=== PATIENT | male | born 1985 | race Caucasian/White ===

== ENCOUNTER 2023-05-01 08:28 | Outpatient (CLI) | payer OTHER, SELFPAY | END 2023-05-01 08:29 | disposition home or self-care (01) | LOC: RAD 08:32 | PROVIDERS: Visit Provider Nurse Practitioner Family | DX: M26.623 Arthralgia of bilateral temporomandibular joint (principal); R00.1 Bradycardia, unspecified | CPT/HCPCS: 93005 ==

== ENCOUNTER 2023-05-02 08:48 | Outpatient (CLI) | payer OTHER, SELFPAY ==
--- NOTE | 2023-05-02 | XR_ITS ---
WS: [id number] Exam: [place] [id number] Date/Time of Exam: 05/02/2023 9:33 AM Reason For Exam: BILATERAL TMJ PAIN No fracture or dislocation. Both TMJs demonstrate normal motion between open and closed mouth views. Mandibular condyles are smooth in contour. IMPRESSION: 1. Unremarkable bilateral TMJs.
--- NOTE | 2023-05-02 09:02 | XR_ITS ---
WS: [id number] Exam: XR knee RT 3V* [id number] Date/Time of Exam: 05/02/2023 9:11 AM Reason For Exam: BILATERAL KNEE PAIN No fracture or dislocation noted. Articular relationships are intact. No joint effusion. Impression: Normal RIGHT knee Kellgren-Edmond Classification: 0
--- NOTE | 2023-05-02 09:02 | XR_ITS ---
WS: [email or web address] Exam: XR thoracic spine 3V* [id number] Date/Time of Exam: 05/02/2023 9:11 AM Reason For Exam: THORACIC SPINE PAIN No fracture or dislocation. No significant scoliosis. Unremarkable paraspinal soft tissues. IMPRESSION: 1. No fracture or malalignment.
--- NOTE | 2023-05-02 09:02 | XR_ITS ---
WS: [id number] Exam: XR elbow LT 2V [id number] Date/Time of Exam: 05/02/2023 9:11 AM Reason For Exam: BILATERAL ELBOW PAIN Findings: There are no fractures, soft tissue swelling, or calcifications. The elbow shows normal bony alignme nt. There is no irregularity of the bony architecture. IMPRESSION: Negative LEFT elbow.
--- NOTE | 2023-05-02 09:02 | XR_ITS ---
WS: [email or web address] Exam: XR hand RT min 3V* [id number] Date/Time of Exam: 05/02/2023 9:11 AM Reason For Exam: R HAND FX No acute fracture or dislocation. Old fracture deformities at the proximal ends of the proximal fourt h and fifth phalanges. Healed fracture of the scaphoid with screw fixation. Normal soft tissues. IMPRESSION: 1. No acute fracture or dislocation. 2. Old fractures of the hand as detailed above..
--- NOTE | 2023-05-02 09:02 | XR_ITS ---
WS: [email or web address] Exam: XR finger RT min 2V [id number] Date/Time of Exam: 05/02/2023 9:11 AM Reason For Exam: R FINGER FX The fifth finger is targeted for radiographic evaluation. No acute fracture or dislocation. Normal soft tissues. Old fracture deformity at the base of the prox imal phalanx. IMPRESSION: 1. No acute fracture. Old proximal phalangeal fracture.
--- NOTE | 2023-05-02 09:02 | XR_ITS ---
WS: [id number] Exam: XR lumbar spine min 4V [id number] Date/Time of Exam: 05/02/2023 9:11 AM Reason For Exam: LOW BACK PAIN No fracture or dislocation. The spaces are preserved. Posterior elements are intact. No flexion or ex tension instability noted. No scoliosis. IMPRESSION: 1. Normal lumbar spine study.
--- NOTE | 2023-05-02 09:02 | XR_ITS ---
WS: [id number] Exam: XR elbow RT 2V [id number] Date/Time of Exam: 05/02/2023 9:11 AM Reason For Exam: BILATERAL ELBOW PAIN Findings: There are no fractures, soft tissue swelling, or calcifications. The elbow shows normal bony alignme nt. There is no irregularity of the bony architecture. IMPRESSION: Negative RIGHT elbow.
--- NOTE | 2023-05-02 09:02 | XR_ITS ---
WS: [email or web address] Exam: XR knee LT 3V* [id number] Date/Time of Exam: 05/02/2023 9:11 AM Reason For Exam: BILATERAL KNEE PAIN No fracture or dislocation noted. Articular relationships are intact. No joint effusion. Impression: Normal LEFT knee Kellgren-Edmond Classification: 0
== END 2023-05-02 08:49 | disposition home or self-care (01) ==
LOC: RAD 08:51
PROVIDERS: Visit Provider Nurse Practitioner Family
DX: M26.623 Arthralgia of bilateral temporomandibular joint (principal); M25.522 Pain in left elbow; M25.521 Pain in right elbow; M25.562 Pain in left knee; M25.561 Pain in right knee; M54.50 Low back pain, unspecified; M54.6 Pain in thoracic spine; Z87.81 Personal history of (healed) traumatic fracture
CPT/HCPCS: 70330; 72072; 72110; 73070; 73130; 73140; 73562